=== PATIENT | female | born 1955 ===

== ENCOUNTER 2022-06-21 05:10 | Day surgery (SDC) | payer OTHER | END 2022-06-21 09:10 | disposition home or self-care (01) | LOC: AMB-ENDOS 05:10 | PROVIDERS: ATTEND Colon & Rectal Surgery | DX: D12.5 Benign neoplasm of sigmoid colon (principal); Z20.822 Contact with and (suspected) exposure to COVID-19; K64.0 First degree hemorrhoids; Z86.010 Personal history of colon polyps ==